=== PATIENT | male | born 1950 | race Caucasian/White ===

== ENCOUNTER → 2018-01-21 | Outpatient (CLI) | payer OTHER ==
[~2018-01-21] MED LIST: AMINOPHYLLINE 250 MG/10 ML VIAL.
== END | disposition home or self-care (01) ==
LOC: PCVCIMAG 09:34
DX: I07.1 Rheumatic tricuspid insufficiency (principal); R06.00 Dyspnea, unspecified; M79.602 Pain in left arm
CPT/HCPCS: 93306; J0280

== ENCOUNTER → 2018-01-24 | Outpatient (CLI) | payer OTHER ==
[~2018-01-24] MED LIST changes: -AMINOPHYLLINE 250 MG/10 ML VIAL.; +REGADENOSON 0.4 MG/5 ML DISP.SYRIN. IV
== END | disposition home or self-care (01) ==
LOC: PCVCIMAG 08:01
DX: Z01.818 Encounter for other preprocedural examination (principal); R06.09 Other forms of dyspnea; I10 Essential (primary) hypertension; E78.5 Hyperlipidemia, unspecified; Z87.891 Personal history of nicotine dependence
CPT/HCPCS: 78452; 93017; A9500; J2785